=== PATIENT | male | born 1950 | race Caucasian/White ===

== ENCOUNTER 2024-11-10 09:34 | Day surgery (SDC) | payer MEDICARE, SELFPAY ==
[2024-11-10] VITALS (15 sets, daily range): BP systolic 95–152; BP diastolic 64–90; PULSE 55–87; RESP 16–18; TEMP 36.6–37.2; O2SAT 89–100; BMI 23.7; BMI 24.6
--- OUTSIDE RECORDS SUMMARY | 2024-11-10 09:36 | XMS_ITS | Clinical Summary ---
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 [facility] Allergies No known active allergies Medications clindamycin (CLEOCIN T) 1 % lotion APPLY THIN LAYER TO ENTIRE FACE ONCE DAILY 0 Active tretinoin (RETIN-A) 0.1 % cream PLEASE SEE ATTACHED FOR DETAILED DIRECTIONS 0 Active Immunizations Immunization Administration Dates Next Due MMR 01/15/2009 Moderna Monovalent 12+ 10/17/2020,09/19/2020 TB Skin Test (PPD) 01/15/2009,01/08/2009 Social History Tobacco Use Types Packs/Day Years Used Date Smoking Tobacco: Never Alcohol Use Standard Drinks/Week Comments No 0 (1 standard drink = 0.6 oz pur e alcohol) Sex and Gender Information Value Date Recorded Sex Assigned at Male 02/04/2021 2:58 PM CDT Legal Sex Male 6:44 AM CDT Gender Identity Male 02/04/2021 2:58 PM CDT Sexual Orientation Straight 02/04/2021 2: 58 PM CDT Plan of Treatment Health Maintenance Due Date Last Done Comments Hep C Screening (Preventive Services) 1950 Medicare Annual Wellness Visit 1950 Cholesterol 1985 Colon Cancer Screening Plan Due 01/02/2006 01/01/2006 COVID-19 Vaccine (3 - season) 2024 10/17/2020, 09/19/2020 Influenza Vaccine (#1) 2024 9, 05/17/2018, 03/13/2017, Additional history exists RSV Vaccine (1 - 1-dose 75+ series) 2025 DTaP/Tdap/Td Vaccine (3 - Tdap) 03/15/2028 03/15/2018, 12/02/2005 Pneumococcal Vaccine 50+ Yrs Completed 03/15/2018, 11/23/2016 Zoster/Shingles Vaccine Completed 05/15/2019, 01/16 HepA Vaccine Aged Out No longer eligi ble based on patient's age to complete this topic HepB Vaccine Aged Out No longer eligi ble based on patient's age to complete this topic Hib Vaccine Aged Out No longer eligi ble based on patient's age to complete this topic IPV (Polio) Vaccine Aged Out No longe r eligible based on patient's age to complete this topic MCV4 Vaccine Aged Out No longer eligi ble based on patient's age to complete this topic Meningococcal B Vaccine Aged Out No l onger eligible based on patient's age to complete this topic Procedures Procedure Name Priority Date/Time Associated Diagnosis Comments COLONOSCOPY S 01/01/2006 12:00 AM CDT from Last 3 Months or Most Recently Relevant to Health Maintenance Results * COLONOSCOPY S (01/01/2006 12:00 AM CDT) Narrative Transcriptions Kain Fan MD - 01/01/2006 12:00 AM CDT us Kain Fan MD DUMMY/OTHER/AR Final Result from Last 3 Months or Most Recently Relevant to Health Maintenance Insurance MEDICARE MEDICARE
--- OUTSIDE RECORDS SUMMARY | 2024-11-10 09:36 | XMS_ITS | Clinical Summary ---
Author Organization [employer] [facility] [employer] Address [address] [place] [id number] Care Team Providers Care Ammonia Technician Name Role Phone Breana Sebastian Jen Unavailable [phone] Garrison Barnett MD Primary Care Provider [phone] Reji Shay MD Unavailable [phone] Allergies No known active allergies Medications diclofenac topical (VOLTAREN) 1 % gel Apply topically to affected area(s) 4 times daily. 0 1 Active PARoxetine (PAXIL) 40 mg tablet Take 40 mg by mouth once daily. Cutting in quarters, mixes with cream 2 Active ezetimibe (Zetia) 10 mg tabletIndicatio ns:Elevated coronary artery calcium score Take 1 Tablet (10 mg) by mouth once daily. Further refills to follow next annual cardiology visit. Next visit in 11/2024. Call in 08/2024 to schedule. 90 Tablet 3 4 Active rosuvastatin (Crestor) 10 mg tabletIndicatio ns:Elevated coronary artery calcium score Take 1 Tablet (10 mg) by mouth at bedtime. Further refills to follow next annual cardiology visit. Next visit in 11/2024. Call in 08/2024 to schedule. 90 Tablet 3 4 Active Active Problems Problem Noted Date Diagnosed Date History of colon polyps 11/11/2023 Overview (11/11/2023): Colonoscopy 01/2019 TA, moderate diverticuli, repeat in 7 years Elevated coronary artery calcium score 3 Overview (08/27/2023): June 2023: 95% for age. August 2023: Dr. Luis A Shay consult ( Cardiology) Start rosuvastatin 10 mg daily. Start ezetimibe 10 mg daily. 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 Garcia injected [facility] joint right thumb at [facility]. Asymmetrical sensorineural hearing loss 10/12/19 19 Resolved Problems Problem Noted Date Diagnosed Date Resolved Date Sensorineural hearing loss, bilateral 11/21/2018 03/30/2019 Encounters Date Type Department Care Team Description 11/06/2024 Orders Only [facility] [address] [place] [address] Dr Sargent [facility] [place] [address] Reji Shay MD <No scans attached> 10/05/2024 7:25 AM CDT Office Visit [facility] [address] [place] [address] Garrison Barnett MD Medicare ANNUAL (subsequent) Visit (AGE 74) 10/05/2024 Travel 09/30/2024 Travel from Last 3 Months Immunizations Immunization Administration Dates Next Due COVID-19 vaccine (Moderna 100mcg/0.5mL) PFEMELYN 09/19/2020 Influenza A (H1N1), Inactivated 05/29/2009 Influenza, High-dose Inactivated 024,05/15/2019,05/17/2018,03/13 Influenza, High-dose Quadriv alent Inactivated 02/22/2023,04/10/2022,03/19/2021 Influenza,CCIIV4 PRESERV FREE 03/07/2016 MMR 01/15/2009 Pneumococcal Conj 20-valent (Prevnar 20) 02/07/2023 Pneumococcal Poly,23-Valent (Pneumovax) 03/15/2018 Pneumococcal conj 13-Valent (Prevnar 13) 11/23/2016 Td, Preservative Free (age > = 7 Years) 03/15/2018 Tdap 12/02/2005 Tuberculin (PPD) 01/15/2009,01/08/2009 9 Zoster (Shingrix-RZV, recombinant) 05/15/2019, Family History Medical History Relation Name Comments Heart failure Brother Schizophrenia Brother Cancer-colon Father Heart failure Father Good Health Mother Bipolar disorder Sister Relation Name Status Comments Brother Father Mother Sister Social History Tobacco Use Types Packs/Day Years Used Date Smoking Tobacco: Former Cigarettes 0.5 8 1 1977 Smokeless Tobacco: Never Tobacco Cessation:Counseling Given: Yes Alcohol Use Standard Drinks/Week Comments No 0 (1 standard drink = 0.6 oz pur e alcohol) PHQ-2 Answer Date Recorded PHQ-2 TOTAL SCORE 0 10/05/2024 Social Connections Answer Date Recorded Do you often feel lonely or isolated from those around you? 0 09/30/2024 Financial Resource Strain Answer Date R ecorded Difficulty of Paying Living Expenses 3 09/30/2024 Difficulty of Paying Living Expenses Not on file 09/30/2024 Food Insecurity Answer Date Recorded Do you worry your food will run out before you are able to buy more? 1 09/30/2024 Transportation Needs Answer Date Record ed Does lack of transportation keep you from medica l appointments? 1 09/30/2024 Does lack of transportation keep you from work, meetings or getting things that you need? 1 09/30/2024 Housing Stability Answer Date Recorded What is your housing situation today? 1 09/30/2024 Utilities Answer Date Recorded Do you have trouble paying f or utilities (for example, heat, electricity, water, phone)? 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 Gender Identity Not on file Sexual Orientation Not on file Obstetrics History Last Filed Vital Signs Vital Sign Reading Time Taken Comments Blood Pressure 119/76 10/05/2024 7:20 AM CDT Pulse 81 10/05/2024 7:20 AM CDT Temperature - - Respiratory Rate 27 11/11/2023 9:11 AM CDT Oxygen Saturation 100% 10/05/2024 7:20 AM CDT Inhaled Oxygen Concentration - - Weight 73.6 kg (162 lb 3.2 oz) 10/05/2024 7:20 A M CDT Height 171.5 cm (5' 7.5) 10/05/2024 7:20 AM CDT Body Mass Index 25.03 10/05/2024 7:20 AM CDT Plan of Treatment Upcoming Encounters Date Type Department Care Team (Late st Contact Info) Description 11/16/2024 9:00 AM CDT Orders Only [facility] [address] [place] [address] [place], [place] 11/20/2024 9:00 AM CDT [facility] [address] [place] [address] Dr [address] [place] [address] Miedema, Reji Mclain MD [address] [facility] [address] [place], [place] [id number] Health Maintenance Due Date Last Done Comments RSV vaccine for adults or (1 - Risk 60-74 years 1-dose series) 2010 AAA screening age 65-74 2015 COVID-19 vaccine series (2023- season) 2024 04/10/2022, 10/17/2020, 09/19/2020 BMI (ht and wt on same day) for age 18+ 10/05/2025 10/05/2024, 10/01/2023, 08/27/2023, Additional history exists Depression screening for age 12+ 10/05/2025 10/05/2024, 10/01/2023, 10/01/2023, Additional history exists Medicare Wellness for age 65+ 10/06/2025 10/05/2024, 10/01/2023 Tetanus booster 03/15/2028 03/15/2018, 12/02/2005 Lipids for age 45-75 11/21/2028 11/22/2023, 08/24/2023, 05/25/2011 Colonoscopy through age 75 11/10/203011/10, 11/11/2023, 11/11/2023 Hepatitis C screening for age 18-79 10/01/2031 Postponed from 1968 (Patient discretion) Tdap Completed 12/02/2005 Zoster (shingles) series for age 50+ Completed 05/15/2019, 01/16/2019 Pneumococcal series for age 50+ Completed 02/07/2023, 03/15/2018, 11/23/2016 Influenza Vaccine Completed 03/21/2024, , 05/17/2018, Additional history exists Procedures Procedure Name Priority Date/Time Associated Diagnosis Comments LIPID PANEL Routine 11/22/2023 7:24 AM CDT Elevated coronary artery calcium score Hyperlipidemia, unspecified hyperlipidemia type COLONOSCOPY SCREENING Routine 11/11/2023 7:46 AM CDT History of colon polyps from Last 3 Months or Most Recently Relevant to Health Maintenance Results * LIPID PANEL (11/22/2023 7:24 AM CDT) CHOLESTEROL,TOTAL 133 100 - 199 mg/dL 11/22/2023 2:54 PM CDT [facility] Comment: Cholesterol, Total Reference Ranges Desirable <200 mg/dL Borderline 200-239 mg/dL High >=240 mg/dL TRIGLYCERIDES 59 <150 mg/dL 11/22/2023 2:54 PM CDT [facility] HDL CHOLESTEROL 61 >40 mg/dL 2:54 PM CDT [facility] NON-HDL CHOLESTEROL 72 <145 mg/dl 11/22/2023 2:54 PM CDT [facility] CHOL/HDL RATIO 2.18 <4.50 11/22/2023 2:54 PM CDT [facility] LDL CHOLESTEROL 60 <=130 mg/dL 11/22/2023 2:54 PM CDT [facility] VLDL CHOLESTEROL 12 <=30 mg/dL 11/22/2023 2:54 PM CDT [facility] PROVIDER ORDERED STATUS RANDOM 11/22/2023 2:54 PM CDT [facility] Blood BLOOD SPECIMEN / Unknown Venipuncture / Unknown 11/22/2023 7:24 AM CDT 11/22/2023 7:25 AM CDT Reji Shay MD CHEMISTRY Final Re sult [facility] [address] [place] [address], [place] * COLONOSCOPY (11/11/2023 7:45 AM CDT) 11/11/2023 7:45 AM CDT Narrative Transcriptions Valdez Yoon MD - 11/24/2023 2:45 PM CDT Patient Name: Reji Wang Procedure Date: 11/11/2023 Gender: Male Date of : 1950 Admit Type: Outpatient Procedure: Colonoscopy Proceduralist: Valdez Yoon MD , Mi Quinn (Nurse) Referring MD: Garrison Barnett Indications/Pre-Op Diagnosis: High risk colon cancer surveillance:Personal history of adenoma less than 10 mm in size, Last colonoscopy: January 2019 Medications: None Procedure Description: The patient had risks, benefits and alternatives explained to andgave informed consent. The patient had a stable cardiopulmonary status and judged an adequate candidate for conscious sedation. The patient declined sedation. The endoscope [id number]-[id number] was passed through the anus andadvanced to the cecum, identified by appendiceal orifice and ileocecal valve.The colonoscopy was performed without difficulty. The patient toleratedthe procedure well. The quality of the bowel preparation was good. The ileocecal valve, appendiceal orifice, and rectum were photographed. Complications: No immediate complications. Estimated Blood Loss & Specimen: Estimated blood loss: none. Specimen collected - None Findings: Multiple large-mouthed and small-mouthed diverticula were found inthe sigmoid colon and descending colon. There was narrowing of the colonin association with the diverticular opening. The perianal and digital rectal examinations were normal. A small amount of liquid stool was found in the ascending colon, interfering with visualization. Lavage of the area was performedusing a large amount of sterile water, resulting in clearance with good visualization. The exam was otherwise without abnormality on direct and retroflexion views. Impressions/Post-Op Diagnosis: - Moderate diverticulosis in the sigmoid colon and in the descending colon. There was narrowing of the colon in association with the diverticular opening. - Stool in the ascending colon. - The examination was otherwise normal on direct and retroflexionviews. - No specimens collected. Recommendation: - Patient has a contact number available for emergencies. The signsand symptoms of potential delayed complications were discussed with the patient. Return to normal activities tomorrow. Written discharge instructions were provided to the patient. - Resume previous diet. - Continue present medications. - Repeat colonoscopy in 7 years for surveillance. Moderate Sedation: None Valdez Yoon MD 11/24/2023 2:45:22 PM This report has been signed electronically. Note Initiated On: 11/11/2023 7:45 AM Procedure Code(s): --- Professional --- 68260, Colonoscopy, flexible; diagnostic, including collection of specimen(s) bybrushing or washing, when performed (separateprocedure) Diagnosis Code(s): --- Professional --- Z86.010, Personal history of colonicpolyps K57.30, Diverticulosis of large intestine without perforation or abscess withoutbleeding CPT copyright 2022 [employer]. All rights reserved. The codes documented in this report are preliminary and upon complex director reviewmay be revised to meet current compliance requirements. 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
--- NOTE | 2024-11-10 09:51 | CRLHL7_ITS ---
For Patients: As a result of the Century Cures Act, medical imaging exams and procedure reports are released immediately into your electronic medical record. You may view this report before your referring provider. If you have questions, please contact your health care provider. INDICATION: ABD PAIN TECHNIQUE: CT of the abdomen and pelvis was obtained with 76 mL of Isovue 370 intravenous contrast. Please note that all CT scans at this facility use dose modulation, iterative reconstruction, and/or weight-based dosing when appropriate to reduce radiation dose to as low as reasonably achievable. COMPARISON: None. FINDINGS: Lower thorax: Normal. Liver and biliary tree: Subcentimeter hypoattenuating lesions are too small to characterize and are favored to represent cysts. Gallbladder: Normal. Spleen: Normal. Pancreas: Normal. Adrenal glands: Normal. Kidneys and ureters: No hydronephrosis. No obstructing renal calculi. Bilateral renal cysts. Additional subcentimeter hypoattenuating lesions are too small to characterize and are favored to represent cysts. [id number] bilateral renal cortical scarring. Gastrointestinal tract: Moderate descending and sigmoid colonic diverticulosis without CT evidence of acute diverticulitis. Moderate stool burden is seen throughout the colon. Dilated appendix measuring up to 1.0 centimeter (). 8 millimeter appendicolith at the base (). Posterior duodenal diverticulum. Peritoneal cavity: Moderate fat stranding surrounding the appendix with trace free fluid. Bladder: Normal. Pelvic organs: Normal. Vasculature: Moderate calcification. Lymph nodes: Normal. Abdominal wall: Normal. Musculoskeletal: Moderate right and mild left degenerative changes of the bilateral hips. Nonspecific sclerotic lesion in the right sacrum; in the absence of known malignancy, this is favored to represent a bone island. IMPRESSION: 1. Dilated appendix measuring up to 1.0 centimeter with surrounding fat stranding and trace free fluid is compatible with acute appendicitis. 8 millimeter appendicolith at the base. 2. Moderate stool burden is seen throughout the colon. Please note that all CT scans at this facility use dose modulation, iterative reconstruction, and/or weight-based dosing when appropriate to reduce radiation dose to as low as reasonably achievable. Dictated by Jair Solorzano MD @ 11/10/2024 11:32:11 AM (Electronically Signed)
--- NOTE | 2024-11-10 09:56 | ED.ABDPAIN ---
HPI - Abdominal Pain General Chief Complaint: Abdominal Pain Stated Complaint: right sided abdominal pain Time Seen by Provider: 11/10/24 09:48 History of Present Illness HPI narrative: Patient is a 74-year-old gentleman who comes in today with approximately 24 hours of right lower quadrant pain. He has had anorexia general malaise body aches and fatigue. He is not certain whether he has had a fever. Had no blood in his stool. He is not on any anticoagulation is had no previous abdominal surgeries. He had a half a banana approximately 2 hours ago. Pain is 6/10 and sharp. No radiation. Related Data Home Medications ?Medication ?Instructions ?Recorded ?Confirmed ezetimibe 10 mg tablet 10 mg PO DAILY 11/10/24 11/10/24 rosuvastatin 10 mg tablet 10 mg PO DAILY 11/10/24 11/10/24 Allergies Allergy/AdvReac Type Severity Reaction Status Date / Time No Known Drug Allergies Allergy Verified 11/10/24 09:38 Review of Systems Status of ROS Reports: 10 or more systems reviewed and unremarkable except as noted in History and below [facility] Social History Smoking Status: Former smoker How often do you have a drink containing alcohol: never AUDIT-C Alcohol total score: 0 Non-prescribed substance use: denies use Exam Narrative: Exam Narrative: EXAM GENERAL: Patient appears comfortable and well. EYES: No scleral icterus. LYMPH: No supraclavicular or cervical lymphadenopathy. SKIN: Visible skin seen during exam normal or with benign process only. EXT: No dependent lower extremity pedal edema. HEART: Regular rate and rhythm with no murmurs, rubs, or gallops. LUNGS: Clear to auscultation bilaterally with no crackles or wheezes. ABD: Primarily soft with tenderness and guarding in the right lower quadrant. PSYCH: Good eye contact, speech is not pressured. Const: Vital Signs, click to edit/add: Vital Signs - 24 hr 11/10/24 09:40 Temperature 97.9 F Pulse Rate [Pulse Oximeter] 87 Respiratory Rate 18 Blood Pressure [Ri ght Upper Arm] 132/72 Pulse Oximetry 98 Oxygen Delivery Me thod Room Air Course Course ED Course: Patient seen examined. Normal saline and Zofran given. Comprehensive metabolic panel lipase lactate CBC CT abdomen pelvis pending. Vital Signs Vital signs: Initial Vital Signs Temperature 97.9 F 11/10/24 09:40 Temperature Source Oral 11/10/24 09:40 Pulse Rate 87 11/10/24 09:40 Pulse Rhythm Regular 11/10/24 09:40 Respiratory Rate 18 11/10/24 09:40 Blood Pressure 132/72 11/10/24 09:40 Blood Pressure Mean 92 11/10/24 09:40 Blood Pressure Position Sitting 11/10/24 09:40 Pulse Oximetry 98 11/10/24 09:40 Oxygen Delivery Method Room Air 11/10/24 09:40 Vital Signs Temperature 97.9 F 11/10/24 09:40 Pulse Rate 87 11/10/24 09:40 Respiratory Rate 18 11/10/24 09:40 Blood Pressure 132/72 11/10/24 09:40 Pulse Oximetry 98 11/10/24 09:40 Oxygen Delivery Method Room Air 11/10/24 09:40 Temperature 97.9 F 11/10/24 09:40 Pulse Rate 87 11/10/24 09:40 Respiratory Rate 18 11/10/24 09:40 Blood Pressure 132/72 11/10/24 09:40 Pulse Oximetry 98 11/10/24 09:40 Oxygen Delivery Method Room Air 11/10/24 09:40 Medications Administered Medications: Discontinued Medications Generic Name Dose Route Start Last Admin Trade Name Freq PRN Reason Stop Dose Admin Sodium Chloride 1,000 mls @ 1,000 mls/hr 11/10/24 09:51 11/10/24 11:10 0.9 % Sodium Chloride 1000 Ml IV 11/10/24 10:50 Infused .Q1H ATIF Infusion MDM - Abdominal Pain MDM Narrative Medical decision making narrative: Patient is a 74-year-old gentleman presents with right lower quadrant pain. He last ate approximately 8 hours ago. Workup shows leukocytosis and CT of the abdomen pelvis shows acute appendicitis. UA is suspicious for urinary tract infection. IV Zosyn was given. Patient will be kept NPO and will be admitted for surgery later today. Vital signs are stable. Patient has had no previous abdominal surgery and is not on anticoagulants. Lab Data Labs: Lab Results 11/10/24 11/10/24 11/10/24 Range/Units 09:50 10:00 10:10 WBC 14.54 H (4.50-11.00) K/uL RBC 5.15 (4.30-5.90) m/uL Hgb 15.0 (13.5-17.5) gm/dL Hct 44.1 (37.0-53.0) % MCV 86 (80-100) fL MCH 29 (26-34) pg MCHC 34 (32-36) gm/dL RDW Coeff of Ronan 13.0 (11.5-15.5) % Plt Count 124 L (140-440) K/uL Neut % (Auto) 86.6 H (42.0-72.0) % Lymph % (Auto) 8.5 L (20-44) % Thayer % (Auto) 4.7 (0.0-11.0) % Eos % (Auto) 0.0 (0.0-7.0) % Baso % (Auto) 0.1 (0.0-3.0) % Neut # (Auto) 12.60 H (1.7-7.0) K/uL Lymph # (Auto) 1.20 (0.90-2.90) K/uL Thayer # (Auto) 0.70 (0.00-0.90) K/UL Eos # (Auto) 0.00 (0.00-0.50) K/uL Baso # (Auto) 0.00 (0.00-0.30) K/uL Abs Immat Gran (auto) 0.00 (0.00-0.30) K/uL Imm/Tot Granulo (auto) 0.1 % Sodium 136 (135-149) mmol/L Potassium 4.0 (3.6-5.1) mmol/L Chloride 102 (96-114) mmol/L Carbon Dioxide 25 (20-32) mmol/L Anion Gap 9 (7-15) mEq/L BUN 21 (7-30) mg/dL Creatinine 1.0 (0.5-1.5) mg/dL Estimated Creat Clear 62.70 Estimated GFR 79 ml/min Glucose 120 H (60-115) mg/dL Lactate 1.7 (0.5-1.9) mmol/L Calcium 9.4 (8.4-10.6) mg/dL Total Bilirubin 1.5 (0.1-1.5) mg/dL AST 32 (12-35) U/L ALT 24 (4-50) U/L Alkaline Phosphatase 55 (40-150) U/L Total Protein 7.2 (6.0-8.3) g/dL Albumin 4.4 (3.3-5.0) g/dL Lipase 34 (23-300) U/L Urine Color Dark yellow (Yellow) Urine Appearance Cloudy A (Clear) Urine pH 6.0 (5.0-8.5) Ur Specific [place] >= 1.030 (1.000-1.030) Urine Protein 1+ A (Negative) Urine Glucose (UA) Negative (Negative) Urine Ketones Trace A (Negative) Urine Blood Trace-intact A (Negative) Urine Nitrite Positive A (Negative) Urine Bilirubin Negative (Negative) Urine Urobilinogen 0.2 (0.2-1.0) Ur Leukocyte Esterase Trace A (Negative) Urine RBC 0-2 (0-2) Urine WBC 5-10 A (0-5) Ur Squamous Epith Cells Moderate A (None-Few) Urine Bacteria Moderate A (None) SARS-CoV-2 (PCR) Negative SARS-CoV-2 (Negative) Influenza Type A (PCR) Negative PCR FLU A (Negative) Influenza Type B (PCR) Negative PCR FLU B (Negative) RSV (PCR) Negative PCR RSV (Negative) Discharge Plan Discharge Clinical Impression: Acute appendicitis Patient Disposition: Admitted As Observation Condition: Stable Activity Level: Other Discharge Diet: Other Prescriptions: No Action rosuvastatin 10 mg tablet 10 mg PO DAILY ezetimibe 10 mg tablet 10 mg PO DAILY Follow Up/Referrals: Garrison Barker MD [Primary Care Provider] -
[2024-11-10] MEDS: 0.9 % SODIUM CHLORIDE 1000 ml 1,000 ML IV (10:10)
--- OUTSIDE RECORDS SUMMARY | 2024-11-10 10:15 | XMS_ITS | Clinical Summary ---
Author Organization [facility] Address [address] [place] [address] Care Team Providers Care Remediation Project Engineer Name Role Phone Unavailable Primary Care Provider Unavailabl e Source Comments You are receiving this document as you are listed as the primary care provider,follow-up provider, or the patient has been referred to you for consultation.This is in compliance with the Medicare and[facility] EHR Incentive Program,which states Providers who transition their patient to another setting of careor provider of care or refers their patient to another provider of care shouldprovide summary care record for each transition of care or referral. [facility] Allergies No known active allergies Medications [...]
[2024-11-10 10:16] LABS: Lactate* 1.7 mmol/L (0.5-1.9)
[2024-11-10 10:20] LABS: Appearance Urine Cloudy (Clear); Bilirubin Urine Negative (Negative); Blood Urine Trace-intact (Negative); Color Urine Dark yellow (Yellow); Glucose Urine Negative (Negative); Ketones Urine Trace (Negative); Leukocyte Esterase Urine Trace (Negative); Nitrite Urine Positive (Negative); Protein Urine 1+ (Negative); Specific Gravity Urine >= 1.030 (1.000-1.030); Urobilinogen Urine 0.2 (0.2-1.0)
[2024-11-10 10:25] LABS: Basophils Percent Auto 0.1 % (0.0-3.0); Hematocrit 44.1 % (37.0-53.0); Immature Granulocytes Pct Auto 0.1 %; Lymphocytes Percent Auto 8.5 % (20-44); Mean Corpuscular HGB Conc 34 gm/dL (32-36); Mean Corpuscular Hemoglobin 29 pg (26-34); Mean Corpuscular Volume 86 fL (80-100); Monocytes Percent Auto 4.7 % (0.0-11.0); Neutrophils Percent Auto 86.6 % (42.0-72.0); Platelet Count* 124 K/uL (140-440); Red Blood Count 5.15 m/uL (4.30-5.90); White Blood Count* 14.54 K/uL (4.50-11.00)
[2024-11-10 10:26] LABS: Slide Review Reflex No
[2024-11-10 10:29] LABS: Bacteria Urine Moderate; RBC Urine 0-2 (0-2); Squamous Epithelial Cell Urine Moderate (None-Few)
[2024-11-10 10:32] LABS: Albumin* 4.4 g/dL (3.3-5.0); Chloride* 102 mmol/L (96-114); Sodium* 136 mmol/L (135-149)
[2024-11-10 10:35] LABS: Alanine Aminotransferase* 24 U/L (4-50); Alkaline Phosphatase* 55 U/L (40-150); Anion Gap 9 mEq/L (7-15); Aspartate Amino Transferase* 32 U/L (12-35); Bilirubin Total* 1.5 mg/dL (0.1-1.5); Blood Urea Nitrogen* 21 mg/dL (7-30); Calcium* 9.4 mg/dL (8.4-10.6); Carbon Dioxide* 25 mmol/L (20-32); Estimated Glomerular Filt Rate 79 ml/min; Glucose* 120 mg/dL (60-115); Total Protein* 7.2 g/dL (6.0-8.3)
[2024-11-10 10:37] LABS: PCR FLU A Negative PCR FLU A (Negative); PCR FLU B Negative PCR FLU B (Negative); PCR RSV Negative PCR RSV (Negative); SARS PCR* Negative SARS-CoV-2 (Negative)
[2024-11-10 10:41] LABS: Lipase* 34 U/L (23-300)
--- NOTE | 2024-11-10 11:53 | P.GSCN_ITS ---
History of Present Illness Consult details Date Seen: 11/10/24 Consult date: 11/10/24 Narrative: The patient is a 74-year-old male who presented to the emergency department this afternoon with right lower quadrant pain. He states that last evening after going to bed he noted abdominal pain which began broadly but moved across his abdomen to the right lower quadrant. He initially thought he had food poisoning. He does not note that anything made the pain better or worse but ibuprofen did help. He has never had pain like this before. He did have nausea overnight but no vomiting. He did notice fever and chills. This morning he had half of a banana. This went down okay. He has not noted any change in his bowel habits. No urinary symptoms. No odor or dysuria. He has no history of abdominal surgery. Denies chest pain or shortness of breaths. 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 Smoking Status: Former smoker How often do you have a drink containing alcohol: never AUDIT-C Alcohol total score: 0 Non-prescribed substance use: denies use Meds Home Medications and Allergies Home Medications ?Medication ?Instructions ?Recorded ?Confirmed ?Type ezetimibe 10 mg tablet 10 mg PO DAILY 11/10/24 11/10/24 History rosuvastatin 10 mg tablet 10 mg PO DAILY 11/10/24 11/10/24 History Allergies Allergy/AdvReac Type Severity Reaction Status Date / Time No Known Drug Allergies Allergy Verified 11/10/24 09:38 Exam Narrative: Exam Narrative: General appearance: Alert, cooperative, and in no distress Eyes: PERRLA, eye lids clear, and sclera white HENT Head: Normocephalic Ears: External ears normal Pulmonary: Breathing nonlabored on room air Cardiovascular Heart: Regular rate Extremities: warm and well perfused Gastrointestinal Abdominal: No scars. Right lower quadrant is tender with guarding and rebound. Musculoskeletal: Extremities: Upper: Both upper extremities have normal joint range of motion and intact strength. Lower: Both lower extremities have normal joint range of motion and intact strength. Skin: Normal skin color, texture, and turgor. Neurologic: No focal deficits Psychiatric: Alert, oriented, cooperative, normal affect. Const: Vital Signs, click to edit/add: Vital Signs - 24 hr 11/10/24 09:40 Temperature 97.9 F Pulse Rate [Pulse Oximeter] 87 Respiratory Rate 18 Blood Pressure [Ri ght Upper Arm] 132/72 Pulse Oximetry 98 Oxygen Delivery Me thod Room Air Results Labs Labs: Abnormal lab results 11/10/24 11/10/24 Range/Units 10:00 10:10 WBC 14.54 H (4.50-11.00) K/uL Plt Count 124 L (140-440) K/uL Neut % (Auto) 86.6 H (42.0-72.0) % Lymph % (Auto) 8.5 L (20-44) % Neut # (Auto) 12.60 H (1.7-7.0) K/uL Glucose 120 H (60-115) mg/dL Urine Appearance Cloudy A (Clear) Urine Protein 1+ A (Negative) Urine Ketones Trace A (Negative) Urine Blood Trace-intact A (Negative) Urine Nitrite Positive A (Negative) Ur Leukocyte Esterase Trace A (Negative) Urine WBC 5-10 A (0-5) Ur Squamous Epith Cells Moderate A (None-Few) Urine Bacteria Moderate A (None) Diabetes panel 11/10/24 Range/Units 10:10 Sodium 136 (135-149) mmol/L Potassium 4.0 (3.6-5.1) mmol/L Chloride 102 (96-114) mmol/L Carbon Dioxide 25 (20-32) mmol/L BUN 21 (7-30) mg/dL Creatinine 1.0 (0.5-1.5) mg/dL Glucose 120 H (60-115) mg/dL Calcium 9.4 (8.4-10.6) mg/dL AST 32 (12-35) U/L ALT 24 (4-50) U/L Alkaline Phosphatase 55 (40-150) U/L Total Protein 7.2 (6.0-8.3) g/dL Albumin 4.4 (3.3-5.0) g/dL Calcium panel 11/10/24 Range/Units 10:10 Calcium 9.4 (8.4-10.6) mg/dL Albumin 4.4 (3.3-5.0) g/dL Pituitary panel 11/10/24 Range/Units 10:10 Sodium 136 (135-149) mmol/L Potassium 4.0 (3.6-5.1) mmol/L Chloride 102 (96-114) mmol/L Carbon Dioxide 25 (20-32) mmol/L BUN 21 (7-30) mg/dL Creatinine 1.0 (0.5-1.5) mg/dL Glucose 120 H (60-115) mg/dL Calcium 9.4 (8.4-10.6) mg/dL Adrenal panel 11/10/24 Range/Units 10:10 Sodium 136 (135-149) mmol/L Potassium 4.0 (3.6-5.1) mmol/L Chloride 102 (96-114) mmol/L Carbon Dioxide 25 (20-32) mmol/L BUN 21 (7-30) mg/dL Creatinine 1.0 (0.5-1.5) mg/dL Glucose 120 H (60-115) mg/dL Calcium 9.4 (8.4-10.6) mg/dL Total Bilirubin 1.5 (0.1-1.5) mg/dL AST 32 (12-35) U/L ALT 24 (4-50) U/L Alkaline Phosphatase 55 (40-150) U/L Total Protein 7.2 (6.0-8.3) g/dL Albumin 4.4 (3.3-5.0) g/dL All other labs normal. Imaging Abdomen CT scan report/results: report reviewed and image reviewed Additional studies: CT Abdomen/Pelvis: IMPRESSION: 1. Dilated appendix measuring up to 1.0 centimeter with surrounding fat stranding and trace free fluid is compatible with acute appendicitis. 8 millimeter appendicolith at the base. 2. Moderate stool burden is seen throughout the colon. Dictated by Jair Solorzano MD @ 11/10/2024 11:32:11 AM Progress Note:A&P Assessment and plan (1) Urinary tract infection: Status: Acute (2) Acute appendicitis: Status: Acute Plan The patient is a 74-year-old male with acute appendicitis. We discussed that appendectomy is the preferred treatment for this. This can most often be done laparoscopically. We discussed risks and benefits of the procedure including but not limited to bleeding, need for conversion to open, risk of injury to other structures, need for possible bowel resection, and abscess formation. The patient understands that the risk of abscess is higher if the appendix is perforated. For that reason, we generally keep patient is in the hospital on IV antibiotics until vital signs and white blood cell count had normalized. We also discussed recovery including 2 weeks of lifting restrictions. We also discussed that it appears as though he has urinary tract infection. I explained that we will treat him with antibiotics to cover this and also discharge him home on antibiotics. We will plan on surgery this afternoon. He may possibly be able to discharge home as long as has been the site is is not perforated and as long as he has someone to stay with him after the procedure. He is agreeable with this plan and signed informed consent.
--- NOTE | 2024-11-10 13:28 | PM.GSPRC ---
Operative Note Date of procedure: 11/10/24 Pre-op diagnosis: Acute appendicitis Post-op diagnosis: Acute, gangrenous appendicitis Type of Procedure: Laparoscopic appendectomy Indications: The patient is a 74-year-old male who presented to the emergency department with 1 day of right lower quadrant pain. Workup revealed acute appendicitis. I recommended appendectomy and he agreed to proceed. Procedure Description: After discussing the risks and benefits of the procedure, the patient signed informed consent.? The operative site was marked and the patient was brought to the operating room and placed on the operating table in supine position.? Care was taken to pad the patient's pressure points.?? The patient was then intubated by anesthesia.?? The operative site was then prepped and draped in the usual sterile fashion.? A time-out was then performed. Entrance to the abdomen was obtained via a 5 mm optical trocar in the left upper quadrant. The abdomen was insufflated and briefly surveyed for any signs of injury. There were none. A 12 mm port was placed inferior to the umbilicus as well as a 5 mm port in the left lower quadrant. Both were done under direct vision. The patient was then placed in Trendelenburg position with the right side up. The small bowel was gently moved out of the way and the appendix was in view, adherent to the pelvic sidewall with fibrinous exudate attached. A small amount of dissection was necessary to free the appendix from the surrounding pelvic attachments. The appendix was grasped and pulled into view. A mesenteric window was created between the base of the appendix and the mesoappendix. The mesentery was divided with an Endo-JOSE ALEJANDRO vascular load stapler. An Endo-JOSE ALEJANDRO purple load stapler was then used to transect the appendix at its base. The appendix was inflamed extending down to the base, however I was able to place a stapler just below, taking a cuff of cecum. The staple lines were inspected for bleeding. There was none. The appendix was then removed from the abdomen using an Endo-Catch bag. The specimen was sent to pathology. The ports were removed and the abdomen was desufflated. The 12 mm port site fascia was closed with 0 Vicryl. The skin was then closed with absorbable subcuticular suture. Sterile dressings were then applied. Instrument sponge and needle counts were correct at the end of the case. The patient was then woken and transported to the PACU in stable condition. The patient tolerated the procedure well. Findings: Acute, gangrenous appendicitis Anesthesia: GETA Surgeon: Elizabeth Brewer MD Estimated blood loss (mL): 5 Specimen: Appendix Condition: stable Disposition: PACU
[2024-11-10] MEDS: LACTATED RINGERS 1000 ML 1,000 ML 125 ML IV ×2 (13:44→18:18)
--- NOTE | 2024-11-10 14:44 | PC.NURSE ---
End of shift: Pt arrived to the unit @ 1240. AxOx4, cooperative, and pleasant with cares. Pt reports mild discomfort, denying further intervention. Wellness Program Administrator placed warm blanket on Pt while Pt awaits surgery. LR running @ 125 ml/hr. Pt denies nausea. Indep in room. Pt appears resting with call light in reach.
[2024-11-10] MEDS: ACETAMINOPHEN 325 MG TABLET 650 MG PO (15:13)
[2024-11-10] MEDS: PIPERACILLIN/TAZOBACTAM 3.375 GM in 0.9 % SODIUM CHLORIDE Mini-bag 100 ML IVPB (17:54)
--- NOTE | 2024-11-10 18:22 | P.ANES_ITS ---
Anesthesia Charges Start Date/Time Anesthesia Start Date: 11/10/24 Anesthesia Start Time: 17:37 Stop Date/Time Anesthesia Stop Date: 11/10/24 Anesthesia Stop Time: 18:51 Summary Emergency: APRON WORKER Extremes of Age - Over 70 or under 1: APRON WORKER Coding CPT Codes CPT Codes: ANESTH SURG LOWER ABDOMEN - 86578 ([id number]) P2 - PATIENT W/MILD SYST DISEASE, QZ - APRON WORKER SVC W/O MORTGAGE COORDINATOR BY Additional Codes: Summary - Emergency: APRON WORKER ([id number]) Summary - Extremes of Age - Over 70 or under 1: APRON WORKER ([id number])
--- NOTE | 2024-11-10 18:22 | W.ANESCHARGE ---
Anesthesia Charges Start Date/Time Anesthesia Start Date: 11/10/24 Anesthesia Start Time: 17:37 Stop Date/Time Anesthesia Stop Date: 11/10/24 Anesthesia Stop Time: 18:51 Summary Emergency: TELEPHONE AD TAKER Extremes of Age - Over 70 or under 1: TELEPHONE AD TAKER Coding CPT Codes CPT Codes: ANESTH SURG LOWER ABDOMEN - 96580 ([id number]) P2 - PATIENT W/MILD SYST DISEASE, QZ - TELEPHONE AD TAKER SVC W/O MEDICAID BUSINESS ANALYST BY Additional Codes: Summary - Emergency: TELEPHONE AD TAKER ([id number]) Summary - Extremes of Age - Over 70 or under 1: TELEPHONE AD TAKER ([id number])
[2024-11-10] MEDS: BUPIVACAINE 0.25% 30 ML 20 ML INJECTION (18:28)
[2024-11-10] MEDS: HYDROCODONE-ACETAMIN 5-325 MG 1 TAB PO (20:39)
[2024-11-10] MEDS: metroNIDAZOLE 500 MG TABLET PO (20:39)
[2024-11-10] MEDS: CIPROFLOXACIN 500 MG TABLET PO (20:39)
--- NOTE | 2024-11-10 22:01 | PC.NURSE ---
Pt arrived to floor at 1916, alert, oriented and vitally stable. Pt denies nausea and pain. Fluids and food tolerated well. 3 lap sites covered in steri strips, umbilicus incision had scant blood otherwise C/D/I. IV discontinued, tip intact. DC information given, topics included follow up, medications and post op care. pt DC @ 2054.
== END 2024-11-10 20:55 | disposition home or self-care (01) ==
LOC: ED 11:57 → SS 12:57 → MEDSURG 12:57
PROVIDERS: Emergency Provider Internal Medicine; PCP Family Medicine; Visit Provider Surgery
PROC: 0DTJ4ZZ Resection of Appendix, Percutaneous Endoscopic Approach (ICD-10-PCS; CPT 44970; principal; 2024-11-10 17:00)
DX: K35.891 Other acute appendicitis without perforation, with gangrene (principal); N39.0 Urinary tract infection, site not specified; N40.0 Benign prostatic hyperplasia without lower urinary tract symptoms; R10.31 Right lower quadrant pain; R63.0 Anorexia; R53.83 Other fatigue; E78.5 Hyperlipidemia, unspecified
CPT/HCPCS: 44970; 00840; 36415; 74177; 80053; 81001; 81003; 83605; 83690; 85025; 87086; 87631; 88304; 99100; 99140; 99283; 99285; A9270; J0330; J0665; J1100; J1171; J2405; J2543; J2704; J2710; J3010; J3490; J7030; J7120; Q9967